=== PATIENT | female | born 1950 | race Hispanic/Latino ===

== ENCOUNTER → 2020-11-01 | Outpatient (CLI) | payer MEDICARE ==
[~2020-11-01] MED LIST: REGADENOSON 0.4 MG/5 ML SYR IV ONE
== END ==
LOC: NM 09:57
PROVIDERS: ATTEND Internal Medicine Cardiovascular Disease
DX: R07.9 Chest pain, unspecified (principal)
CPT/HCPCS: 78452; 93017; 93306; A9502; J2785

== ENCOUNTER 2022-07-02 15:33 | Emergency (ER) | payer MEDICARE ==
[~2022-07-02] VITALS: Ht 149.9 cm; Wt 49.2 kg
[2022-07-02] MEDS ORDERED: FAMOTIDINE 20 MG/2 ML VIAL IV STA (16:55)
[2022-07-02] MEDS ORDERED: SODIUM CHLORIDE 0.9% 1000ML 1,000 ML ONE (16:57)
[2022-07-02] MEDS ORDERED: FAMOTIDINE 20 MG/2 ML VIAL IV ONE (16:57)
[2022-07-02] MEDS ORDERED: SODIUM CHLORIDE 0.9% 1000ML 1,000 ML IV SCH (17:00)
[2022-07-02] MEDS ORDERED: IOPAMIDOL 370 MG/ML 100 ML INFUS..BTL INJ ONE (17:00)
[2022-07-02] MEDS ORDERED: PANTOPRAZOLE SO40 MG PO (19:25)
[2022-07-02] MEDS ORDERED: FAMOTIDINE40 MG PO (19:26)
== END 2022-07-02 19:56 | disposition home or self-care (01) ==
LOC: FSED 16:52
DX: R07.0 Pain in throat (principal); R13.10 Dysphagia, unspecified; K21.9 Gastro-esophageal reflux disease without esophagitis; F03.90 Unspecified dementia, unspecified severity, without behavioral disturbance, psychotic disturbance, mood disturbance, and anxiety
CPT/HCPCS: 70491; 71046; 80053; 81003; 85025; 93005; 99284; J7030; Q9967